=== PATIENT | male | born 1950 | race Caucasian/White ===

== ENCOUNTER 2016-12-30 07:24 | Day surgery (SDC) | payer MEDICARE, BC ==
[2016-12-30] MEDS ORDERED: ACETAZOLAMIDE 250 MG PO ONE (07:32)
[2016-12-30] MEDS: PROPARACAINE HCL 0.5% OPHTHALMIC SOL ONE ×3 (07:50→09:03)
[2016-12-30] MEDS: CYCLOPENTOLATE 1% SOL ONE ×2 (07:51→08:04)
[2016-12-30] MEDS: PHENYLEPHRINE HCL 10% OPHTHAL SOL ONE ×2 (07:51→08:04)
[2016-12-30] MEDS ORDERED: MIDAZOLAM 2 MG/2 ML SOL ONE (08:40)
[2016-12-30] MEDS ORDERED: LIDOCAINE HCL 1% MPF SOL ONE (08:58)
[2016-12-30] MEDS ORDERED: POVIDONE IODINE 5% SOL ONE (08:58)
[2016-12-30] MEDS ORDERED: BSS 500 ML 500 ML IR ONE (08:58)
[2016-12-30 09:41] VITALS: RESP 20; TEMP 97.3
[2016-12-30 09:48] VITALS: BP 118/63; PULSE 58; O2SAT 97
== END 2016-12-30 09:55 | disposition home or self-care (01) | DRG 125 ==
LOC: SURG 07:24
PROVIDERS: ATTEND Ophthalmology
DX: H25.9 Unspecified age-related cataract (principal)
CPT/HCPCS: J2250; J2001

== ENCOUNTER 2017-01-27 09:29 | Day surgery (SDC) | payer MEDICARE, BC ==
[~2017-01-27 09:29] MED LIST: BSS 500 ML 500 ML IR ONE; LIDOCAINE HCL 1% MPF SOL ONE; MIDAZOLAM 2 MG/2 ML SOL ONE; POVIDONE IODINE 5% SOL ONE
[2017-01-27] MEDS ORDERED: ACETAZOLAMIDE 500 MG CER ONE (09:36)
[2017-01-27 09:45] VITALS: PULSE 58; O2SAT 100
[2017-01-27] MEDS: PHENYLEPHRINE HCL 10% OPHTHAL SOL ONE ×2 (09:46→09:58)
[2017-01-27] MEDS: PROPARACAINE HCL 0.5% OPHTHALMIC SOL ONE ×3 (09:46→10:04)
[2017-01-27] MEDS: CYCLOPENTOLATE 1% SOL ONE ×2 (09:47→09:58)
[2017-01-27 10:32] VITALS: BP 107/73; RESP 18; TEMP 97.5
== END 2017-01-27 10:44 | disposition home or self-care (01) | DRG 125 ==
LOC: SURG 09:29
PROVIDERS: ATTEND Ophthalmology
DX: H25.9 Unspecified age-related cataract (principal)
CPT/HCPCS: J2250; J2001